=== PATIENT | male | born 1970 | race Caucasian/White ===

== ENCOUNTER 2019-07-04 06:49 | Emergency (ER) | payer OTHER ==
[~2019-07-04] VITALS: Ht 180.3 cm; Wt 90.7 kg
[2019-07-04 07:27] LABS: ABSOLUTE EOSINOPHILS 0.1 thou/uL (0.0-0.7); ABSOLUTE LYMPHOCYTES 0.7 thou/uL (0.8-5.3); ABSOLUTE MONOCYTES 0.2 thou/uL (0.0-1.2); ABSOLUTE NEUTROPHILS 1.7 thou/uL (1.6-8.1); BASOPHILS 0.4 %; EOSINOPHILS 1.9 %; HEMATOCRIT 49.2 % (42.0-52.0); HEMOGLOBIN 17.6 gm/dL (14.0-18.0); LYMPHOCYTES 26.8 %; MCH 34.8 pg (26.0-34.0); MCHC 35.9 g/dL (28.0-37.0); MONOCYTES 8.7 %; MPV 8.2 fl. (7.2-11.1); NUCLEATED RBCS 0 /100WBC; PLATELET COUNT* 167 thou/uL (150-400); POLYS 62.2 %; RBC 5.06 mil/uL (4.50-6.00); RDW-CV 12.7 % (10.5-14.5); WBC 2.8 thou/uL (4.0-11.0)
[2019-07-04 07:37] LABS: APTT 25.7 Seconds (25.0-31.3); PROTIME 10.1 Seconds (9.20-11.50)
[2019-07-04 07:42] LABS: CALCIUM 8.5 mg/dL (8.5-10.1); CREATININE 0.8 mg/dL (0.6-1.3); POTASSIUM 3.6 mmol/L (3.5-5.1)
[2019-07-04 07:47] LABS: ALBUMIN 3.8 g/dL (3.4-5.0); CK-MB MASS 2.5 ng/mL (<0.5-3.6); TOTAL BILIRUBIN 0.7 mg/dL (<0.1-1.0); TOTAL PROTEIN 6.8 g/dL (6.4-8.2)
[2019-07-04 09:51] VITALS: BP 115/71
--- NOTE | 2019-07-04 10:21 | EKG ---
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: : [id number] Requested By: Zohaib Lopez Order Number: [id number] MD: Freddy Rendon Measurements Intervals Coleman Rate: 71 P: 53 OR: 176 QRS: 0 QRSD: 81 T: 35 QT: 360 QTc: 392 Interpretive Statements Sinus rhythm artifact noted Compared to ECG 04/19/2010 13:57:45 Sinus tachycardia no longer present Electronically Signed On 07-04-2019 10:20:07 [employer] SUPERVISOR by Freddy Rendon [email or web address] <ELECTRONICALLY SIGNED> By: Freddy Rendon MD, [facility] 07/04/19 1020 0653 Freddy Rendon MD, [facility] /EPI
== END 2019-07-04 09:53 | disposition home or self-care (01) ==
LOC: M.ERS 06:49
PROVIDERS: Emergency Medicine
DX: B34.9 Viral infection, unspecified (principal); F41.9 Anxiety disorder, unspecified; F17.210 Nicotine dependence, cigarettes, uncomplicated